=== PATIENT | male | born 1935 | race Caucasian/White ===

== ENCOUNTER → 2017-10-17 15:28 | Outpatient (CLI) | payer MEDICARE, SELFPAY | PROVIDERS: Visit Provider Family Medicine | DX: G62.9 Polyneuropathy, unspecified (principal); Z79.899 Other long term (current) drug therapy | CPT/HCPCS: 82746 ==

== ENCOUNTER → 2018-06-20 08:41 | Outpatient (CLI) | payer MEDICARE, SELFPAY ==
--- NOTE | 2018-06-20 09:25 | RAD_ITS ---
EXAM: ESOPHAGRAM CLINICAL INDICATION: Male, 83 years old. Dysphagia for years. Patient states food gets stuck around sternal match. No history of surgery or cancer. Previous endoscopies. FLUOROSCOPY TIME: 1:43 min/sec. Total images: 115, fluoroscopic spot and cine images. COMPARISON: None available. FINDINGS: Fluoroscopy and both fluoroscopic spot and cine imaging was provided for a barium swallow. The patient was administered barium sulfate contrast in the usual oral fashion including ingesting air insufflation crystals under fluoroscopic visualization. Upright, right lateral cine upright cervical esophagus and prone DEAN positioning swallowing was accomplished. The cervical esophagus demonstrates moderate thickening of the cricopharyngeus muscle indenting the proximal esophagus at the lower cervical spine level with a convex smooth margin. In addition, tiny anterior and posterior areas of retained contrast are noted suggesting diverticuli, likely Zenker's type diverticuli. The thoracic esophagus demonstrates fairly severe distal persistent stricture with air contrast tiny rounded medial greater than lateral outpouchings concerning for mucosal ulcers with or without diverticuli. Associated moderate mid/distal more superior esophageal dilatation noted. Moderate sliding-type hiatal hernia noted. After patient ingested 8 millimeter diameter barium tablet, the tablet showed delayed movement within the distal esophagus at the narrowed GE junction consistent with stricture. Patient also complained of sometimes food caught in throat. Right lateral cine imaging shows no aspiration or laryngeal penetration. Severe degenerative changes are noted throughout the cervical spine with disc space narrowing and partial necrosis suggested. This raises the question of ankylosing spondylitis. Clinically indicated, AP pelvis view may be more helpful. After film shows the barium tablet within the distal esophageal stricture at the GE junction. 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 Differential lower probability consideration includes tiny diverticuli. 8 mm diameter barium tablet did not pass the GE junction during the study after 10 minutes and is also seen with the delayed after film esophagram image. If clinically indicated, upper endoscopy with possible dilatation may be more helpful. Cannot exclude extrinsic constricting lesion. If clinically indicated, CT chest with IV contrast and GI contrast may be more helpful for further evaluation. Moderate sliding-type hiatal hernia. Severe GE reflux. Cervical esophagus Zenker's diverticulum versus small mucosal ulcers. Clinical correlation recommended. Question of ankylosing spondylitis. If clinically indicated, AP pelvis view may be more helpful. Electronically Signed: Last Dowling, at 12:17 EDT Tel , Service support ,
== END ==
PROVIDERS: Family Provider Family Medicine; PCP Family Medicine; Referring Provider Nurse Practitioner Adult Health; Visit Provider Nurse Practitioner Adult Health
DX: R13.10 Dysphagia, unspecified (principal)
CPT/HCPCS: 74220

== ENCOUNTER → 2019-05-14 10:24 | Outpatient (CLI) | payer MEDICARE, SELFPAY ==
[2016-06-13 08:09] VITALS: BMI 23.5
[2019-05-14 11:09] LABS: AST(SGOT) 18 U/L (15-37); Alanine Aminotransfer ALT/SGPT 22 U/L (16-61); Albumin, Serum 3.5 g/dL (3.2-5.0); Alkaline Phosphatase 85 U/L (45-117); Anion Gap 2 (5-15); BUN 22 mg/dL (7-18); Chloride 108 mmol/L (98-107); EST Glomerular Filtration Rate 68 mL/min (>60); Est Glom Filt Rate - Afr Amer 82 mL/min (>60); Globulin 3.5 g/dL (2.2-4.2); Glucose 105 mg/dL (74-106); Potassium 4.2 mmol/L (3.5-5.1); Sodium Level 141 mmol/L (136-145); Thyroid Stim Hormone (TSH) 2.57 uIU/mL (0.358-3.74)
== END ==
PROVIDERS: Family Provider Family Medicine; PCP Family Medicine; Referring Provider Family Medicine; Visit Provider Family Medicine
DX: E03.9 Hypothyroidism, unspecified (principal)
CPT/HCPCS: 80053; 84443

== ENCOUNTER → 2020-07-07 15:08 | Outpatient (CLI) | payer MEDICARE, SELFPAY ==
[2016-06-13 08:09] VITALS: BMI 23.5
[2020-07-07 15:29] LABS: Absolute Lymphocyte Count 1.68 X10^3/uL (0.83-4.51); Absolute Neutrophil Count 4.3 X10^3/uL (2.0-7.7); Basophil# 0.03 X10^3/uL; Basophil% 0.5 % (0-1); Eosinophil# 0.06 X10^3/uL; Eosinophils% 0.9 % (0-5); Hematocrit 46.3 % (40-54); Hemoglobin 15.5 g/dL (13.0-16.5); Lymphocyte # 1.68 X10^3/ul (4.0); Lymphocyte % 25.7 % (19-41); Mean Corp Hgb Conc 33.5 g/dL (32-36); Mean Corpuscular Hgb 30.8 pg (27.0-32.0); Mean Platelet Vol. 11.2 fl (6.2-12.0); Monocyte# 0.51 X10^3/uL; Monocyte% 7.8 % (0-10); NRBC Flagged by Analyzer 0 % (0-5); Neutrophil # 4.25 X10^3/uL (2.7-7.7); Neutrophil % 64.9 % (47-70); Platelet Count 226 K/mm3 (150-450); RBC Distribution Width CV 12.5 % (11.6-14.6); RBC Distribution Width SD 42.2 fl (35.1-43.9); Red Blood Count 5.03 M/mm3 (4.6-6.2); White Blood Count 6.5 K/mm3 (4.4-11.0)
[2020-07-07 16:09] LABS: ALB/GLOB Ratio 1.1 RATIO (0.9-2.4); AST(SGOT) 19 U/L (15-37); Alanine Aminotransfer ALT/SGPT 24 U/L (16-61); Albumin, Serum 3.7 g/dL (3.2-5.0); Alkaline Phosphatase 74 U/L (45-117); Anion Gap 2 (5-15); BUN 21 mg/dL (7-18); BUN/Creat Ratio 19.4 RATIO (10-20); Calcium,Total 9.4 mg/dL (8.5-10.1); Chloride 105 mmol/L (98-107); Creatinine, Serum 1.08 mg/dL (0.70-1.30); EST Glomerular Filtration Rate 69 mL/min (>60); Est Glom Filt Rate - Afr Amer 84 mL/min (>60); Globulin 3.5 g/dL (2.2-4.2); Glucose 101 mg/dL (74-106); Protein, Total 7.2 g/dL (6.4-8.2); Sodium Level 140 mmol/L (136-145); Thyroid Stim Hormone (TSH) 2.82 uIU/mL (0.358-3.74)
== END ==
PROVIDERS: PCP Family Medicine; Visit Provider Family Medicine
DX: E03.9 Hypothyroidism, unspecified (principal)
CPT/HCPCS: 80053; 84443; 85025

== ENCOUNTER → 2022-08-12 | Outpatient (CLI) | payer MEDICARE, SELFPAY ==
[2022-08-12 10:20] LABS: Lyme Ab Screen Interpretation REF LAB
[2022-08-16 11:47] LABS: Lyme Scn Total Ab w/Rflx Negative (Negative)
== END | disposition home or self-care (01) ==
PROVIDERS: PCP Family Medicine; Referring Provider Physician Assistant; Visit Provider Physician Assistant
DX: S40.261A Insect bite (nonvenomous) of right shoulder, initial encounter (principal)
CPT/HCPCS: 36415; 86618

== ENCOUNTER 2023-01-29 07:54 | Observation (INO) | payer MEDICARE, SELFPAY ==
[2023-01-29] VITALS (7 sets, daily range): BP systolic 139–166; BP diastolic 70–108; PULSE 47–59; RESP 15–18; TEMP 36.3–37.1; O2SAT 96–98; BMI 23.3; BMI 24.7
--- NOTE | 2023-01-29 08:17 | EKG12_ITS ---
Test Reason : Blood Pressure : / mmHG Vent. Rate : 049 BPM Atrial Rate : 049 BPM P-R Int : 170 ms QRS Dur : 096 ms QT Int : 470 ms P-R-T Axes : 058 039 057 degrees QTc Int : 424 ms Sinus bradycardia Otherwise normal ECG Confirmed by BEVERLY BROCK, KARIN ([id number]), publications editor LUIS GUIDO ([id number]) on 01/30/2023 11:22:30 AM Referred By: MORIS Confirmed By:KARIN PAUL MD
--- NOTE | 2023-01-29 08:17 | CT_ITS ---
We are attempting to reach an attending provider to discuss findings. An addendum with communication details will be sent when the communication is complete. INDICATION: acute vertigo EXAMINATION: CT BRAIN - CT Head Stroke Protocol W/O Contrast Injection TECHNIQUE: Multiple axial images were obtained of the head without intravenous contrast. A radiation dose optimization technique was used for this scan. IV Contrast dosage and agent: None. RADIATION DOSAGE (If Supplied By Facility): CTDIvol = ( ) mGy, DLP = ( ) mGycm COMPARISON: FINDINGS: BRAIN PARENCHYMA: No intra- or extra-axial hemorrhage. There are foci of low attenuation within the white matter of the cerebral hemispheres, nonspecific finding most commonly reflecting small vessel ischemia. No evidence of acute infarct. No intracranial mass or mass effect. There is preservation of the lynne/white matter interface. Posterior fossa structures are unremarkable. CSF SPACES: Appropriate for age. No hydrocephalus. Basal cisterns are patent. CALVARIUM, SKULL BASE, PARANASAL SINUSES AND MASTOID AIR CELLS: Clear. No discrete lytic or blastic abnormalities. ORBITS: Both globes, extraocular muscles, optic nerves and retrobulbar fat appear unremarkable. ASPECTS Score for Acute Strokes: 10 CT/STROKE Brain/Head without Cont IMPRESSION: No acute intracranial process. Small vessel ischemia. Electronically Signed: Albina Meyers MD at 9:10 EDT ,
--- NOTE | 2023-01-29 08:18 | CT_ITS ---
INDICATION: acute vertigo EXAMINATION: CT BRAIN WITH CONTRAST TECHNIQUE: Noncontrast axial images were obtained of the brain. Subsequently, routine carotid CT angiogram protocol was performed without and with IV contrast. In addition, images were obtained of the [place]. NASCET criteria using the distal ICAs for comparison were used for evaluation of stenoses. 3D reconstructions were reviewed. A radiation dose optimization technique was used for this scan. IV Contrast dosage and agent:100 cc of [id number]-[id number] COMPARISON: None. FINDINGS: --CT BRAIN: BRAIN PARENCHYMA: No intra- or extra-axial hemorrhage. No evidence of acute infarct. No intracranial mass or mass effect. There is preservation of the lynne/white matter interface. Posterior fossa structures are unremarkable. CSF SPACES: Appropriate for age. No hydrocephalus. Basal cisterns are patent. CALVARIUM, SKULL BASE, PARANASAL SINUSES AND MASTOID AIR CELLS: Clear. No discrete lytic or blastic abnormalities. ASPECTS Score for Acute Strokes: 10 --CTA NECK: AORTIC ARCH AND BRANCHES: Normal anatomy, patent. RIGHT CCA: No occlusion, significant stenosis or dissection. RIGHT ICA: No occlusion, significant stenosis or dissection. LEFT CCA: No occlusion, significant stenosis or dissection. LEFT ICA: No occlusion, significant stenosis or dissection. RIGHT VERTEBRAL ARTERY: No occlusion, significant stenosis or dissection. LEFT VERTEBRAL ARTERY: No occlusion, significant stenosis or dissection. NECK SOFT TISSUES: Unremarkable. --CTA HEAD: --Anterior circulation: ICAs: No significant stenosis at the intracranial/visualized segments. ACAs: No significant stenosis at the visualized segments. ACOM: Present. MCAs: No significant stenosis at the visualized segments. --Posterior circulation: PCOMs: Within normal limits hand alterations tailor: No significant stenosis at the visualized segments. BASILAR ARTERY: No significant stenosis. VERTEBRAL ARTERIES: No significant stenosis at the intradural/visualized segments. No evidence of intracranial aneurysm or vascular malformation. CT/STROKE CTA Head AND Neck W/Con IMPRESSION: Within normal limits CT Brain, CTA Carotid, and CTA Brain. N.B. : The above Results were Read Back by Albina Meyers MD to Dequan Espana MD, and understanding confirmed on 01/29/2023 09:24:36 (ET). Electronically Signed: Albina Meyers MD at 9:27 EDT ,
--- NOTE | 2023-01-29 08:20 | EDS_ITS ---
HPI History of Present Illness Chief Complaint: Dizziness Informant: patient, family and EMS Narrative Narrative: Patient got up from bed in the morning about an hour prior to arrival, saying that upon waking up he was staggering/off balance/disequilibrium, and when he got to the bathroom he started having severe spinning, motion dizziness. He laid himself down on the floor and did not fall. Subsequently started vomiting. EMS was called. They gave him Zofran on the way here. No prehospital stroke alert. Patient last well last night when he went to bed somewhere around 9:00 he thinks. He cannot recall if he woke up in bed symptomatic or asymptomatic before he got up and started walking this morning. No history of stroke no history of vertigo no history of PAD or CAD. He is a healthy 88-year-old who lives with his and takes thyroid and blood pressure medication. [facility] Medical History GERD (gastroesophageal reflux disease) Hypertension Hypothyroid Rheumatoid arthritis Home Medications levothyroxine 75 mcg tablet 2 tab PO REYNAGA 06/13/16 [History Last Taken Unknown] levothyroxine 75 mcg tablet 75 mcg PO MOTUWETHFRSA 06/13/16 [History Last Taken Unknown] lisinopril 10 mg tablet 10 mg PO DAILY 06/13/16 [History Last Taken Unknown] lorazepam 0.5 mg tablet 0.5 mg PO TID PRN PRN Anxiety 06/13/16 [History Last Taken Unknown] Allergy/AdvReac Type Severity Reaction Status Date / Time No Known Allergies Allergy Verified 01/29/23 07:58 Social History Smoking Status: Never smoker ROS [facility] ED Constitutional Constitutional ED: Denies chills or fever(s) Eyes Eyes: Denies change in vision or diplopia ENT ENT ED: Reports disequillibrium and vertigo; Denies ear pain, rhinorrhea, sore throat or tinnitus Cardiovascular Cardiovascular: Denies chest pain or palpitations Respiratory/Chest Respiratory/Chest: Denies cough or dyspnea Gastrointestinal Gastrointestinal: Reports nausea and vomiting; Denies abdominal pain or diarrhea Genitourinary Genitourinary ED: Denies dysuria or hematuria Musculoskeletal Musculoskeletal: Denies back pain or neck pain Integumentary Denies abscess or rash Neurologic Neurologic: Reports paresthesias RUE, RLE, LUE and LLE and weakness; Denies headache(s) Psychiatric Psychiatric: Denies anxiety or suicidal thoughts EXAM Physical Exam Const Vital Signs: 01/29/23 07:55 01/29/23 08:17 01/29/23 09:15 Temperature 97.3 F L Temperature Source Temporal Pulse Rate 50 L 59 L Respiratory Rate 16 16 Blood Pressure 164/81 H 165/87 H Blood Pressure Mean 108 113 Pulse Ox 98 98 Oxygen Delivery Method Room Air Room Air Room Air 01/29/23 10:15 Temperature Temperature Source Pulse Rate 47 L Respiratory Rate 16 Blood Pressure 166/108 H Blood Pressure Mean 127 Pulse Ox 96 Oxygen Delivery Method Room Air Positive well nourished and well developed General Appearance ED: well developed and NAD HEENT Reports TM's clear and moist mucous membranes normocephalic and atraumatic Tympanic Membrane ED: Yes TM's clear Eyes PERRL and EOMs intact bilaterally Eyes Narrative: No pathologic horizontal, vertical, or rotatory nystagmus. With jolt test, patient has catch-up saccade, but he states he is able to focus on distant object. Neck full ROM and supple Neck Narrative: No carotid bruits heard Resp normal respiratory effort and clear to auscultation bilaterally Cardio regular rate, regular rhythm and no murmurs Cardio Narrative: Borderline bradycardic, rate around 50 GI non-tender and non-distended Auscultation: normoactive bowel sounds Palpation: soft Back/Spine no CVA tenderness General Back: other FROM Extremity normal to inspection General Extremety ED: Negative for edema, pulses abnormal or tenderness General Extremity: Negative for edema or pulses abnormal Neuro oriented x3, CN's II-XII intact bilaterally and no sensory deficits noted Sensorium / Orientation: awake and alert Motor Exam: general weakness Psych mental status grossly normal Skin no rashes or lesions noted and no wounds NIHSS NIHSS Initial: 1a Level of Consciousness: 0 1b LOC Questions (Score 2 if aphasic/stupor): 0 1c LOC Commands (Only score 1st attempt): 0 2 Best Gaze (If aphasic, use reflexive mvmts.): 0 3 Visual: 0 4 Facial Palsy: 0 5 Motor Arm Right (UN = amputation/fusion): 0 5 Motor Arm Left: 0 6 Motor Leg Right: 2 6 Motor Leg Left: 2 7 Limb ataxia (Only + if out of proportion): 0 8 Sensory (Aphasia/stupor=0 or 1, coma=2): 0 9 Best Language: 0 10 Dysarthria (mute, coma=2, intubated=UN): 0 11 Extinction and Inattention (only scored if +): 0 Total Score: 4 MDM MDM MDM Narrative Medical decision making narrative: History is more consistent with peripheral etiology than central, his jolt test is somewhat ambiguous, the catch-up saccades are consistent with peripheral etiology, but most of the time patients are not able to focus on the distant object along with this although he does not have trouble. Therefore stroke/central etiology was considered, although he does not have any definitive objective neurologic findings at this time, this does not rule it out and so we sent him for CT and CTA of the head and neck but no stroke alert called because not examining like an LVO and he is not a thrombolytic candidate. The CT showed no hemorrhage on my interpretation radiology was in agreement, the CTA does not appear to show an LVO and radiology was in agreement. After passing swallow evaluation he was given meclizine, that helped a little but he was still dizzy and getting him up, he was barely able to get to his feet at all, and given his age and symptoms/acute disability from vertigo, plan will be to admit him. His blood pressure is now down to the 130s, again lower suspicion for this being central, but admission may be helpful in ruling that out further as well. History & Record Review Additional record(s) reviewed:: Prior labs Lab Data Attestation: I reviewed the patient's lab results. Labs: Laboratory Results - last 24 hr 01/29/23 01/29/23 01/29/23 07:58 07:58 07:58 WBC 6.9 RBC 5.05 Hgb 15.8 Hct 45.1 MCV 89.3 MCH 31.3 MCHC 35.0 RDW Std Deviation 40.2 RDW Coeff of Roberto 12.3 Plt Count 231 MPV 10.3 Immature Gran % (Auto) 0.300 Neut % (Auto) 50.5 Lymph % (Auto) 40.7 Reynolds % (Auto) 6.2 Eos % (Auto) 1.7 Baso % (Auto) 0.6 Absolute Neuts (auto) 3.5 Absolute Lymphs (auto) 2.81 Nucleated RBC % 0 PT 13.1 INR 1.0 APTT 29.4 Sodium 143 Potassium 4.2 Chloride 108 H Carbon Dioxide 24.0 Anion Gap 11 BUN 24 H Creatinine 1.04 Estim Creat Clear Calc 51.67 Est GFR (MDRD) Af Amer 87 Est GFR (MDRD) Non-Af 72 BUN/Creatinine Ratio 23.1 H Glucose 169 H Calcium 9.2 Troponin I High Sens 5 Radiography Diagnostic Testing: Clinical Impression(s) from Imaging Studies Brain CT 01/29/23 08:17 IMPRESSION: No acute intracranial process. Small vessel ischemia. Electronically Signed: Albina Meyers MD at 9:10 EDT , ADDENDUM: 01/29/23 0918 IMPRESSION: No acute intracranial process. Small vessel ischemia. N.B. : The above Results were Read Back by Albina Meyers MD to Dequan Espana MD, and understanding confirmed on 01/29/2023 09:11:12 (ET). Electronically Signed: Albina Meyers MD at 9:10 EDT , Head/Neck CTA 01/29/23 08:18 IMPRESSION: Within normal limits CT Brain, CTA Carotid, and CTA Brain. N.B. : The above Results were Read Back by Albina Meyers MD to Dequan Espana MD, and understanding confirmed on 01/29/2023 09:24:36 (ET). Electronically Signed: Albina Meyers MD at 9:27 EDT , ADDENDUM: 01/29/23 0934 IMPRESSION: Within normal limits CT Brain, CTA Carotid, and CTA Brain. N.B. : The above Results were Read Back by Albina Meyers MD to Dequan Espana MD, and understanding confirmed on 01/29/2023 09:24:36 (ET). Electronically Signed: Albina Meyers MD at 9:27 EDT , My interpretation of the CT agrees with that of the radiologist. Rhythm Strip Rhythm Strip: Sinus Rhythm Rate: 50 Ectopy: None EKG Initial EKG: Attestation: I personally reviewed and interpreted this EKG as follows: Interpretation: Sinus Rhythm and No Acute Injury Pattern Comments: Borderline bradycardia otherwise normal EKG Discharge Plan Dx/Rx/DC Orders Clinical Impression: Vertigo, Unable to ambulate Disposition Disposition: Acute Care Hospital [facility]
[2023-01-29 08:27] LABS: Absolute Lymphocyte Count 2.81 X10^3/uL (0.83-4.51); Absolute Neutrophil Count 3.5 X10^3/uL (2.0-7.7); Basophil# 0.04 X10^3/uL; Basophil% 0.6 % (0-1); Eosinophil# 0.12 X10^3/uL; Eosinophils% 1.7 % (0-5); Hematocrit 45.1 % (40-54); Hemoglobin 15.8 g/dL (13.0-16.5); Lymphocyte # 2.81 X10^3/ul (0.83-4.51); Lymphocyte % 40.7 % (19-41); Mean Corpuscular Hgb 31.3 pg (27.0-32.0); Mean Corpuscular Volume 89.3 fL (80-94); Mean Platelet Vol. 10.3 fl (6.2-12.0); Monocyte# 0.43 X10^3/uL; Monocyte% 6.2 % (0-10); NRBC Flagged by Analyzer 0 % (0-5); Neutrophil # 3.49 X10^3/uL (2.7-7.7); Neutrophil % 50.5 % (47-70); Platelet Count 231 K/mm3 (150-450); RBC Distribution Width CV 12.3 % (11.6-14.6); RBC Distribution Width SD 40.2 fl (35.1-43.9); Red Blood Count 5.05 M/mm3 (4.6-6.2); White Blood Count 6.9 K/mm3 (4.4-11.0)
[2023-01-29 08:33] LABS: Prothrombin Time (Protime)PT. 13.1 SECONDS (11.7-14.9)
[2023-01-29] MEDS: Meclizine HCl 25 MG Tablet PO (08:33)
[2023-01-29 08:34] LABS: Partial Thromboplast Time 29.4 Seconds (24.1-36.2)
[2023-01-29 08:42] LABS: Anion Gap 11 (5-15); BUN 24 mg/dL (7-18); BUN/Creat Ratio 23.1 RATIO (10-20); Calcium,Total 9.2 mg/dL (8.5-10.1); Chloride 108 mmol/L (98-107); Creatinine, Serum 1.04 mg/dL (0.70-1.30); EST Glomerular Filtration Rate 72 mL/min (>60); Est Glom Filt Rate - Afr Amer 87 mL/min (>60); Estimated Creatinine Clearance 51.67 ml/min; Glucose 169 mg/dL (74-106); Potassium 4.2 mmol/L (3.5-5.1); Sodium Level 143 mmol/L (136-145); Troponin-I HS 5 pg/mL (3.0-78.0)
--- NOTE | 2023-01-29 11:43 | HP.PCM.HOS_ITS ---
HPI - General General Date of Admission: 01/29/23 Date of Service: 01/29/23 Chief Complaint: dizziness. HPI Narrative SHERMAN VERA, is a 88 M who presents with dizziness. He awoke this AM with the dizziness. Persistent, but worse w movement. He denies having this before. He went to the bathroom. On the toilet his dizziness got worse then he lowered himself to the floor. He did not lose consciousness nor hit his head. He presented to the ED. He had head CT and CTA of head and neck, which were negative. He received meclizine but remained still very dizzy. [facility] Medical History GERD (gastroesophageal reflux disease) Hypertension Hypothyroid Rheumatoid arthritis Home Medications levothyroxine 75 mcg tablet 2 tab PO REYNAGA 06/13/16 [History Last Taken Unknown] levothyroxine 75 mcg tablet 75 mcg PO MOTUWETHFRSA 06/13/16 [History Last Taken Unknown] lisinopril 10 mg tablet 10 mg PO DAILY 06/13/16 [History Last Taken Unknown] lorazepam 0.5 mg tablet 0.5 mg PO TID PRN PRN Anxiety 06/13/16 [History Last Taken Unknown] Allergy/AdvReac Type Severity Reaction Status Date / Time No Known Allergies Allergy Verified 01/29/23 07:58 Social History (Updated 01/29/23 @ 11:[address] Kwabena Glover DO) Smoking Status: Never smoker alcohol intake: never substance use type: does not use ROS ROS Narrative Nausea and vomiting. No diaphoresis. All review of systems were negative except as mentioned above in the history of present illness and the other review of systems. Vital Signs Vital Signs Vital Signs: 01/29/23 07:55 01/29/23 08:17 01/29/23 09:15 Temperature 36.3 C L Temperature Source Temporal Pulse Rate 50 L 59 L Respiratory Rate 16 16 Blood Pressure 164/81 H 165/87 H Blood Pressure Mean 108 113 Pulse Ox 98 98 Oxygen Delivery Method Room Air Room Air Room Air 01/29/23 10:15 01/29/23 11:36 Temperature 36.6 C Temperature Source Temporal Pulse Rate 47 L 52 L Respiratory Rate 16 18 Blood Pressure 166/108 H 163/79 H Blood Pressure Mean 127 107 Pulse Ox 96 96 Oxygen Delivery Method Room Air Room Air Weight Weight: 74 kg Body Mass Index (BMI) 23.3 Physical Exam Narrative - Physical Exam General: Alert, Oriented x3, Cooperative HEENT: Atraumatic, PERRLA, EOMI, Normocephalic, left lateral nystagmus Oral: Moist Mucosa, No Gingival or Mucosal Lesions/ Ulcerations Neck: Supple, No JVD, Negative Carotid Bruits Lungs: Clear to auscultation, Normal air movement Cardiovascular: Regular rate, Normal S1, Normal S2, No murmurs Abdomen: Bowel Sounds Present, Soft, Non Tender, Non-Distended, No Hepato- splenomegaly Extremities: No clubbing, No cyanosis, No edema, Capillary Refill Less than 3 Seconds Skin: No rashes, No breakdown Musculoskeletal: No Tenderness to Palpation of Joints or Extremities Neurological: Neuro grossly intact Psych/Mental Status: Normal Affect, Appropriate Results Lab / Micro Data Attestation: I reviewed the patient's lab results. Result Diagrams: 01/29/23 07:58 01/29/23 07:58 Labs: Laboratory Results - last 24 hr 01/29/23 07:58: WBC 6.9, RBC 5.05, Hgb 15.8, Hct 45.1, MCV 89.3, MCH 31.3, MCHC 35.0, RDW Std Deviation 40.2, RDW Coeff of Roberto 12.3, Plt Count 231, MPV 10.3, Immature Gran % (Auto) 0.300, Neut % (Auto) 50.5, Lymph % (Auto) 40.7, Jenkins % (Auto) 6.2, Eos % (Auto) 1.7, Baso % (Auto) 0.6, Absolute Neuts (auto) 3.5, Ab solute Lymphs (auto) 2.81, Nucleated RBC % 0 01/29/23 07:58: PT 13.1, INR 1.0, APTT 29.4 01/29/23 07:58: Sodium 143, Potassium 4.2, Chloride 108 H, Carbon Dioxide 24.0, Anion Gap 11, BUN 24 H, Creatinine 1.04, Estim Creat Clear Calc 51.67, Est GFR (MDRD) Af Amer 87, Est GFR (MDRD) Non-Af 72, BUN/Creatinine Ratio 23.1 H, Glucose 169 H, Calcium 9.2, Troponin I High Sens 5 Rhythm Strip Rhythm Strip: Sinus Rhythm Rate: 50 Ectopy: None EKG Initial EKG: Attestation: I personally reviewed and interpreted this EKG as follows: Prior EKG tracings: available for review EKG Rhythm Intrepretation: Sinus Bradycardia Radiology Impression Brain CT 01/29/23 08:17 IMPRESSION: No acute intracranial process. Small vessel ischemia. Electronically Signed: Albina Meyers MD at 9:10 EDT , ADDENDUM: 01/29/23 0918 IMPRESSION: No acute intracranial process. Small vessel ischemia. N.B. : The above Results were Read Back by Albina Meyers MD to Dequan Espana MD, and understanding confirmed on 01/29/2023 09:11:12 (ET). Electronically Signed: Albina Meyers MD at 9:10 EDT , Head/Neck CTA 01/29/23 08:18 IMPRESSION: Within normal limits CT Brain, CTA Carotid, and CTA Brain. N.B. : The above Results were Read Back by Albina Meyers MD to Dequan Espana MD, and understanding confirmed on 01/29/2023 09:24:36 (ET). Electronically Signed: Albina Meyers MD at 9:27 EDT , ADDENDUM: 01/29/23 0934 IMPRESSION: Within normal limits CT Brain, CTA Carotid, and CTA Brain. N.B. : The above Results were Read Back by Albina Meyers MD to Dequan Espana MD, and understanding confirmed on 01/29/2023 09:24:36 (ET). Electronically Signed: Albina Meyers MD at 9:27 EDT , Assessment & Plan Assessment/Plan (1) Vertigo: PLAN: likely 2/2 BPPV PRN meclizine PT for vestibular therapy educated pt and family about the etiology and limited nature PLAN: Plan Chronic conditions: * hypothyroidism: continue levothyroxine * htn: continue lisinopril VTE prophylaxis: not indicated given observation status Charges/Coding Visit Charges Inpatient E&M: 60605 Init Hosp L2
[2023-01-29] MEDS: Gabapentin 100 MG Capsule 200 MG PO (20:44)
[2023-01-29] MEDS: Gabapentin 300 MG Capsule PO (20:44)
[2023-01-30 03:00] VITALS: BP 140/85; PULSE 57; RESP 14; TEMP 37.2; O2SAT 97
[2023-01-30] MEDS: Levothyroxine 75 MCG Tablet 37.5 MCG PO (05:42)
--- NOTE | 2023-01-30 07:04 | PN.HOSP_ITS ---
Reason for Visit Reason for Visit: Diagnoses Dizziness and giddiness (01/29/23) Subjective Subjective Feeling better, still with dizziness. Objective Data Objective Data Vital Signs: Vital Signs Temp Pulse Resp BP Pulse Ox O2 Del Method 37.2 C 57 L 14 140/85 H 97 Room Air 01/30/23 03:00 01/30/23 03:00 01/30/23 03:00 01/30/23 03:00 01/30/23 03:00 01/30/23 03:00 Oxygen Delivery Method Room Air Weight: 71.5 kg Body Mass Index (BMI) 24.7 Intake & Output: Intake and Output for Last 24 Hours 01/28/23 01/29/23 01/30/23 23:59 23:59 23:59 Intake Total 450 / 450 Output Total 450 / 850 400 / 400 Balance -450 / -400 50 / 50 Lab / Micro Data Result Diagrams: 01/29/23 07:58 01/29/23 07:58 Labs: Laboratory Results - last 24 hr 01/29/23 07:58: WBC 6.9, RBC 5.05, Hgb 15.8, Hct 45.1, MCV 89.3, MCH 31.3, MCHC 35.0, RDW Std Deviation 40.2, RDW Coeff of Roberto 12.3, Plt Count 231, MPV 10.3, Immature Gran % (Auto) 0.300, Neut % (Auto) 50.5, Lymph % (Auto) 40.7, [place] % (Auto) 6.2, Eos % (Auto) 1.7, Baso % (Auto) 0.6, Absolute Neuts (auto) 3.5, Abso lute Lymphs (auto) 2.81, Nucleated RBC % 0 01/29/23 07:58: PT 13.1, INR 1.0, APTT 29.4 01/29/23 07:58: Sodium 143, Potassium 4.2, Chloride 108 H, Carbon Dioxide 24.0, Anion Gap 11, BUN 24 H, Creatinine 1.04, Estim Creat Clear Calc 51.67, Est GFR (MDRD) Af Amer 87, Est GFR (MDRD) Non-Af 72, BUN/Creatinine Ratio 23.1 H, Glucose 169 H, Calcium 9.2, Troponin I High Sens 5 Radiography Diagnostic Testing: Radiology Impression Brain CT 01/29/23 08:17 IMPRESSION: No acute intracranial process. Small vessel ischemia. Electronically Signed: Albina Meyers MD at 9:10 EDT , ADDENDUM: 01/29/23 0918 IMPRESSION: No acute intracranial process. Small vessel ischemia. N.B. : The above Results were Read Back by Albina Meyers MD to Dequan Espana MD, and understanding confirmed on 01/29/2023 09:11:12 (ET). Electronically Signed: Albina Meyers MD at 9:10 EDT , Head/Neck CTA 01/29/23 08:18 IMPRESSION: Within normal limits CT Brain, CTA Carotid, and CTA Brain. N.B. : The above Results were Read Back by Albina Meyesr MD to Dequan Espana MD, and understanding confirmed on 01/29/2023 09:24:36 (ET). Electronically Signed: Albina Meyers MD at 9:27 EDT , ADDENDUM: 01/29/23 0934 IMPRESSION: Within normal limits CT Brain, CTA Carotid, and CTA Brain. N.B. : The above Results were Read Back by Albina Meyers MD to Dequan Espana MD, and understanding confirmed on 01/29/2023 09:24:36 (ET). Electronically Signed: Albina Meyers MD at 9:27 EDT , Rhythm Strip Rhythm Strip: Sinus Rhythm Rate: 50 Ectopy: None Physical Exam Const alert and no apparent distress HEENT head/scalp atraumatic and moist oral mucous membranes HEENT Narrative: slight right lateral nystagmus. Psych affect normal Assessment & Plan Assessment/Plan (1) Vertigo: PLAN: likely 2/2 BPPV PRN meclizine PT for vestibular therapy educated pt and family about the etiology and limited nature PLAN: Plan Chronic conditions: * hypothyroidism: continue levothyroxine * htn: continue lisinopril VTE prophylaxis: not indicated given observation status Charges/Coding Visit Charges Inpatient E&M: 46411 Subs Hosp L2
[2023-01-30 08:20] VITALS: BP 155/86; PULSE 51; RESP 18; TEMP 36.7; O2SAT 96
[2023-01-30] MEDS: Meclizine HCl 25 MG Tablet PO (08:22)
[2023-01-30] MEDS: Pantoprazole Sodium 20 MG Tablet PO (08:22)
[2023-01-30] MEDS: Gabapentin 300 MG Capsule PO (08:22)
[2023-01-30] MEDS: Lisinopril 10 MG Tablet PO (08:22)
--- NOTE | 2023-01-30 10:15 | CASEMGMT ---
RN?CM?CHEMISTRY QUALITY CONTROL TECHNICIAN?CM?to room to meet with patient for initial transition planning/care coordination?assessment.?RN?CM?introduced self and role at [facility].? Pt voices understanding and consents to?assessment?at this time.? Pt sitting up in chair in no distress at this time.? at bedside. Pt is A/O at this time and answers all questions appropriately.?? Care providers, pharmacy, and demographics verified/updated at this time. PCP: Dr Martinez Specialists: none. Has seen Dr Aguilar in the past, but no longer follows up w/him. Preferred [facility]: [facility]. Insurance: [employer] [facility] Prescription Benefit:?yes Living Will/HPOA:?Pt does not currently have LW/HCPOA and interested in completing. SWAngella, made aware. Pt made aware, if SW unable to meet w/him prior to discharge, that appt can be scheduled w/SW as an OP for completion of AD. LNOK: Carmelo. 4 children Living Arrangements: Lives w/ in one-story home w/basement and one step to enter. Independent. does most home mgnt tasks. Transportation:?Pt states drives self and states no transportation concerns at this time.? also drives. DME: ? Denies using any DME and denies needs.?Pt states he does have a walker available @ home. HHC/SNF: No hx of either. Pt goes to [facility] to exercise on his own. Therapy has worked w/pt and vestibular therapy recommended. Pt is interested in this. Script obtained and provided to pt and . Pt wishes to return home and states has no concerns with going home at time of discharge.? CM?to follow for any further discharge planning/needs.? Pt and voice no further concerns/needs at this time.? PLAN: Home w/OP vestibular therapy. John HANSENN?RN?CM
--- NOTE | 2023-01-30 11:40 | CASEMGMT ---
ONOFRE CM in to discuss BENSON form with patient. RN CM explained BENSON form, patient voiced understanding. Pt signed form and filed in chart. Pt provided with a copy of signed BENSON form. Patient had no further questions or concerns at this time.
[2023-01-30 13:44] VITALS: BP 150/69; PULSE 51; RESP 18; TEMP 36.6; O2SAT 99
--- NOTE | 2023-01-30 14:12 | DCINST_ITS ---
Discharge Instructions Diet Discharge Diet: No restrictions Dressing / Incision Call your doctor if you observe: - (recurrent vertigo) Follow Up Care Test Results: Test results from this visit will be discussed in further detail at your follow- up appointment, if applicable. Discharge Plan Admission Admit Date/Time: 01/29/23 11:39 Primary Reason for Your Visit: vertigo Attending Provider: Kwabena Glover Primary Care Provider: Fuad Martinez Instructions Patient Instructions: Vertigo Medicine Tx, Vestibular Rehab Therapy, BPPV Additional Instructions / Restrictions: You had vertigo. The symptoms can begin suddenly and usually resolve spontaneously. It may or may not recur. Meclizine (Antivert) can help with the symptoms, but will not fix the underlying process if it recurs. Usually it resolves on its own, but it can be helpful to follow up with Vestibular Therapy to learn head maneuvers (Klarissa Maneuvers) to help hasten improvements. There are also videos on YouTube about Klarissa Maneuvers you can watch. Discharge Orders/Prescriptions Prescriptions: New meclizine 25 mg Tablet 25 mg PO TID PRN PRN (Reason: vertigo) Qty: 10 0RF Continued levothyroxine 75 MCG tablet 37.5 mcg PO MOTUWETHFRSA levothyroxine 75 MCG tablet 75 mcg PO REYNAGA lorazepam 0.5 MG tablet 0.5 mg PO TID PRN PRN (Reason: Anxiety) lisinopril 10 MG tablet 10 mg PO DAILY gabapentin 300 mg Tablet 300 mg PO BID omeprazole 20 mg Capsule,Delayed Release(Dr/Ec) 20 mg PO DAILY gabapentin 100 mg Tablet 200 mg PO QHS Rx Instructions: take 300mg tab and two 100mg tabs for 500mg total Referrals / Follow Up: Fuad Martinez MD [Primary Care Provider] - Within 2 Weeks Disposition Disposition (needs filled in before D/C Order can be placed): Home, Self Care
--- NOTE | 2023-01-30 14:19 | DS.PCM_ITS ---
Providers Date of Admission: 01/29/23 Primary Care Physician: Dr. Fuad Martinez MD Reason For Visit: VERTIGO Diagnosis Discharge Diagnosis (1) Vertigo: Status: Acute Code(s): R42 - Dizziness and giddiness Plan: likely 2/2 BPPV PRN meclizine PT for vestibular therapy educated pt and family about the etiology and limited nature Plan Chronic conditions: * hypothyroidism: continue levothyroxine * htn: continue lisinopril VTE prophylaxis: not indicated given observation status Medications at Discharge Home Medications levothyroxine 75 mcg tablet 37.5 mcg PO MOTUWETHFRSA 06/13/16 levothyroxine 75 mcg tablet 75 mcg PO REYNAGA thyroid 06/13/16 lisinopril 10 mg tablet 10 mg PO DAILY bp 06/13/16 lorazepam 0.5 mg tablet 0.5 mg PO TID PRN PRN Anxiety 06/13/16 gabapentin 100 mg tablet 200 mg PO QHS nerve pain 01/29/23 gabapentin 300 mg tablet 300 mg PO BID 01/29/23 omeprazole 20 mg capsule,delayed release 20 mg PO DAILY acid reflux 01/29/23 meclizine 25 mg tablet 25 mg PO TID PRN PRN vertigo #10 tabs 01/30/23 Hospital Course Operations None Procedures None Summary of Care Provided Minutes Spent on Discharge: 28 Hospital Course: Patient presents with acute onset of dizziness. Symptoms are consistent with benign paroxysmal positional vertigo. Patient was brought in because he was still profoundly dizzy in the emergency room despite treatment. Overnight, patient did well. Patient later in the day even did better was able to walk without any deficits. Patient will be discharged home with as needed meclizine and instructions to follow-up with vestibular therapy. Weight / BMI Weight Weight: 71.5 kg Body Mass Index (BMI) 24.7 ABG / Lab / Microbiology Data Result Diagrams: 01/29/23 07:58 01/29/23 07:58 D/C Instructions Discharge Diet: No restrictions Call your doctor if you observe: - (recurrent vertigo) Meaningful Use Info Meaningful Use Diagnoses (Choose all that apply): None applicable Discharge Plan Admission Admit Date/Time: 01/29/23 11:39 Primary Reason for Your Visit: vertigo Attending Provider: Kwabena Glover Primary Care Provider: Fuad Martinez Instructions Patient Instructions: Vertigo Medicine Tx, Vestibular Rehab Therapy, BPPV Additional Instructions / Restrictions: You had vertigo. The symptoms can begin suddenly and usually resolve spontaneously. It may or may not recur. Meclizine (Antivert) can help with the symptoms, but will not fix the underlying process if it recurs. Usually it resolves on its own, but it can be helpful to follow up with Vestibular Therapy to learn head maneuvers (Klarissa Maneuvers) to help hasten improvements. There are also videos on YouTube about Klarissa Maneuvers you can watch. Discharge Orders/Prescriptions Prescriptions: New meclizine 25 mg Tablet 25 mg PO TID PRN PRN (Reason: vertigo) Qty: 10 0RF Continued levothyroxine 75 MCG tablet 37.5 mcg PO MOTUWETHFRSA levothyroxine 75 MCG tablet 75 mcg PO REYNAGA lorazepam 0.5 MG tablet 0.5 mg PO TID PRN PRN (Reason: Anxiety) lisinopril 10 MG tablet 10 mg PO DAILY gabapentin 300 mg Tablet 300 mg PO BID omeprazole 20 mg Capsule,Delayed Release(Dr/Ec) 20 mg PO DAILY gabapentin 100 mg Tablet 200 mg PO QHS Rx Instructions: take 300mg tab and two 100mg tabs for 500mg total Referrals / Follow Up: Fuad Martinez MD [Primary Care Provider] - Within 2 Weeks Disposition Disposition (needs filled in before D/C Order can be placed): Home, Self Care Charges/Coding Visit Charges Inpatient E&M: 15899 Disch Hosp
--- NOTE | 2023-01-30 14:57 | PHA.DC.MC ---
Pharmacy Service has performed discharge medication reconciliation and counseling for this patient. 1. MECLIZINE 25MG PO TID PRN VERTIGO The patient's discharge medication list was reviewed for discrepancies and discrepancies were resolved. Home Medications levothyroxine 75 mcg tablet 37.5 mcg PO MOTUWETHFRSA 06/13/16 levothyroxine 75 mcg tablet 75 mcg PO REYNAGA thyroid 06/13/16 lisinopril 10 mg tablet 10 mg PO DAILY bp 06/13/16 lorazepam 0.5 mg tablet 0.5 mg PO TID PRN PRN Anxiety 06/13/16 gabapentin 100 mg tablet 200 mg PO QHS nerve pain 01/29/23 gabapentin 300 mg tablet 300 mg PO BID 01/29/23 omeprazole 20 mg capsule,delayed release 20 mg PO DAILY acid reflux 01/29/23 meclizine 25 mg tablet 25 mg PO TID PRN PRN vertigo #10 tabs 01/30/23 The patient was counseled on the following discharge medications and changes in medications for homegoing were reviewed. The Reason for Use, instructions for use, and potential side effects were reviewed for all new medications. The patient's questions regarding all of their medications were answered. The patient was able to verbally demonstrate an understanding of their discharge medications.
== END 2023-01-30 15:28 | disposition home or self-care (01) ==
LOC: ED 10:26 → MS3 12:07
PROVIDERS: Emergency Provider Emergency Medicine; PCP Family Medicine
DX: R42 Dizziness and giddiness (principal); M06.9 Rheumatoid arthritis, unspecified; I10 Essential (primary) hypertension; E03.9 Hypothyroidism, unspecified; Z79.899 Other long term (current) drug therapy; Z79.890 Hormone replacement therapy; K21.9 Gastro-esophageal reflux disease without esophagitis; R29.704 NIHSS score 4
CPT/HCPCS: 70450; 70496; 70498; 80048; 84484; 85025; 85610; 85730; 93005; 97162; 99221; 99285; Q9967; G0378